=== PATIENT | male | born 1965 | race Caucasian/White ===

== ENCOUNTER 2025-02-13 18:10 | Emergency (ER) | payer BC, SELFPAY ==
[2025-02-13 18:21] VITALS: BP 117/71
[2025-02-13 18:24] VITALS: BMI 24.2
[2025-02-13 18:48] LABS: % Basophils 0.7 % (0-2); % Eosinophils 0.8 % (0-6); % Immature Granulocytes 0.4 % (0-0.5); % Monocytes 4.4 % (1.7-9.3); % Neutrophils 78.7 % (42.2-75.2); Absolute Basophils 0.1 10^3/uL (0-0.2); Absolute Eosinophils 0.1 10^3/uL (0-0.7); Absolute Lymphocytes 1.1 10^3/uL (1.2-3.4); Absolute Monocytes 0.3 10^3/uL (0.1-0.6); Absolute Neutrophils 5.7 10^3/uL (1.4-6.5); Hematocrit 40.3 % (39.0-52.0); Hemoglobin 14.4 g/dL (13.0-18.0); Mean Corp Hgb Conc. 35.7 g/dL (33.0-37.0); Mean Corpuscular Volume 86.7 fL (80.0-94.0); Mean Platelet Volume 9.2 fL (7.4-10.4); Nucleated Red Blood Cells % 0 % (-); Platelet Count 244 10^3/uL (130-400); Red Blood Cell Count 4.65 10^6/uL (4.70-6.10); Red Cell Dist. Width 11.9 % (11.5-14.5); White Blood Cell Count 7.2 10^3/uL (4.8-10.8)
[2025-02-13 19:00] VITALS: BP 119/74
[2025-02-13 19:09] LABS: ALT (SGPT) 15 U/L (0-50); AST (SGOT) 19 U/L (17-59); Albumin 5.1 g/dl (3.5-5.0); Alkaline Phosphatase 81 U/L (38-126); Blood Urea Nitrogen 17 mg/dl (9-20); Calcium 9.6 mg/dl (8.4-10.2); Carbon Dioxide 14 mmol/L (22-30); Chloride 108 mmol/L (98-107); Estimated Creatinine Clearance 85 ml/min; Glucose 157 mg/dl (70-99); Sodium 138 mmol/L (135-145); Total Bilirubin 1.4 mg/dl (0.2-1.3); Total Protein 7.3 g/dl (6.3-8.2); eGFR > 60.00
[2025-02-13 19:11] LABS: Troponin I < 0.012 ng/ml
[2025-02-13 19:31] LABS: Venous Blood Gas B.E. -1.1 mmol/L (-4 to +4); Venous Blood Gas HCO3 22.6 mmol/L (22-27); Venous Blood Gas O2 Sat % 95.9 %; Venous Blood Gas pCO2 34 mmHg (35-48); Venous Blood Gas pH 7.43 (7.32-7.43); Venous Blood Gas pO2 69 mmHg (30-50)
[2025-02-13 19:32] LABS: Venous Blood Gas O2 Therapy RA
[2025-02-13 20:00] VITALS: BP 113/75
--- NOTE | 2025-02-13 21:15 | ED.GENMED ---
History of Present Illness
General
Chief Complaint: Dizziness
Time Seen by Provider: 02/13/25 21:03
History of Present Illness
History of Present Illness:
Patient is a 59-year-old man who is otherwise healthy presenting to the emergency department after syncopal event. Patient states that he has a torn retina and was at the retinal specialist getting a procedure completed. After the procedure which
she has had before he became nauseous lightheaded dizzy and then passed out. When he came to patient was still nauseous and he started to panic. He started hyperventilating and then had numbness to his fingers. He did become slightly dizzy.
Medics were called and he did have an episode of emesis on his way here. He states that since has been here all symptoms have resolved. He states that he was dizzy earlier which was only positional. He did not get lightheaded or dizzy with
movement. No chest pain. No shortness of breath. This is never happened to him before. Since he has been here patient states he has been tolerating p.o. and ambulated without any difficulty.
Phy Exam
Physical Exam
Physical Exam:
GENERAL: in no acute distress
HEENT: normocephalic, extraocular movements intact, moist oral mucosa
NECK: normal inspection
RESPIRATORY: no respiratory distress, clear to auscultation bilaterally
CARDIOVASCULAR: regular rate and rhythm
ABDOMEN/: soft, non-distended, non-tender to palpation, no rebound or guarding
EXTREMITIES: non-tender, no edema/swelling
NEUROLOGIC: alert and oriented x 3, cranial nerves II-XII intact, right upper extremity strength 5/5, left upper extremity strength 5/5, right lower extremity strength 5/5, left lower extremity strength 5/5, normal sensation to light touch, normal
[id number] and [id number]-[id number], gait not tested formally
SKIN: warm
Course
Orders/Labs/Results
Orders:
Orders
02/13/25 18:16
Electrocardiogram (*1) Urgent
Reason for Study: Chest Pain
Cardiac Monitoring- Treatment ONCE
EKG- Treatment ONCE
IV Insert/Care/Rem.- Treatment PRN
O2 Therapy [RESP] Urgent
Titrate/Wean O2 to maintain O2 sat greater than (%): 90
Special Instructions: Maintain sats >/=90%
Pulse Ox/spot Check [RESP] Urgent
Quantity: 1
Special Instructions: ON ROOM AIR
02/13/25 18:36
Complete Blood Count/With Diff Urgent
Comprehensive Metabolic Panel Urgent
Troponin I Urgent
02/13/25 19:23
Venous Blood Gas Urgent
%Oxygen/Room Air: RA
02/13/25 21:17
Basic Metabolic Panel Urgent
UA Reflex to Culture [Urinalysis Reflex To Culture] Urgent
Date Specimen was Collected: 02/13/25
Time Specimen was Collected: 21:16
Urine Microscopic Reflex Cult Urgent
Abnormal Lab Results
02/13/25 02/13/25 02/13/25
18:36 19:23 21:17
RBC 4.65 L 10^6/uL
(4.70-6.10)
Absolute Lymphs (auto) 1.1 L 10^3/uL
(1.2-3.4)
Neutrophils % 78.7 H %
(42.2-75.2)
Lymphocytes % 15.0 L %
(20.5-51.1)
VBG pCO2 34 L mmHg
(35-48)
VBG pO2 69 H mmHg
(30-50)
Chloride 108 H mmol/L 108 H mmol/L
(98-107) (98-107)
Carbon Dioxide 14 L* mmol/L
(22-30)
Glucose 157 H mg/dl
(70-99)
Total Bilirubin 1.4 H mg/dl
(0.2-1.3)
Albumin 5.1 H g/dl
(3.5-5.0)
Urine Ketones 3+ A
(Negative)
Urine Bacteria (Reflex) Few A
(Negative)
Urine Albumin (Reflex) 1+ A
(Neg - Trace)
02/13/25 18:36
02/13/25 21:17
Vital Signs
Initial and Last Documented VS:
Initial Vital Signs
Temp Pulse Resp BP Pulse Ox
97.5 F 62 20 117/71 95
02/13/25 18:21 02/13/25 18:21 02/13/25 18:21 02/13/25 18:21 02/13/25 18:21
Last Documented Vital Signs
Temp Pulse Resp BP Pulse Ox
97.5 F 66 15 113/75 96
02/13/25 18:21 02/13/25 20:45 02/13/25 20:45 02/13/25 20:00 02/13/25 20:45
MDM/Problems Addressed
Differential Diagnosis Includes:
Patient is a 59-year-old man presenting to the emergency department after syncopal event. On arrival vitals unremarkable on exam is reassuring. Patient does not have any neurodeficits. Likely vagal syncope given the nausea that preceded the
syncopal event. Less likely to be cardiac arrhythmia. Unclear cause of dizziness but he does state that it was positional for like peripheral. No neurodeficits such as a central cause of vertigo. He did have blood work obtained prior to my
evaluation which does show a bicarb initially of 14. Will repeat as he does state that he was hyperventilating as soon as he got here. Patient does appear really well and does not appear or critically ill.
*Critical Care Note
Total Time (30-74mins, 75-104mins- exclusive of procedures): Not Applicable
Update Note
Update Note:
On reevaluation patient is tolerating p.o. He remains asymptomatic. Repeat BMP shows a normalized bicarb. Likely secondary to his hyperventilation
I did discuss with patient possible admission given the low bicarb however given that patient is asymptomatic and has felt fine since has been in the emergency department with improvement in blood work he prefers discharge which is appropriate.
Strict return precautions given.
ED Attending Note
-
Portions of this chart may have been created with voice recognition software.� Occasional wrong word or��sound alike� substitutions may have occurred due to the inherent limitations of voice recognition software.
Discharge Plan
Departure
Patient Disposition: Home (Routine Discharge)
Date of Disposition: 02/13/25
Time of Disposition: 21:53
Patient with high blood pressure during this ER visit?: No
Discharge Problem:
Syncope
Instructions: Vasovagal Response (DC)
Prescriptions:
No Action
krill oil [id number] mg Capsule
1 cap PO Q48H
Activity Restrictions/Additional Instructions:
You were seen in the Emergency Department today for passing out. While you were here we performed blood work, which was reassuring.
We would like for you to follow up with your primary care physician for further evaluation. If you experience fever, worsening of your symptoms, or develop any other new or concerning symptoms, please return to the Emergency Department immediately.
Please see the attached sheet for additional information.
Interventions
Interventions:
*Risk Screen - Suicide Last Done: 02/13/25 18:13
*General Assessment Last Done: 02/13/25 18:13
*Neglect/Abuse Screening Last Done: 02/13/25 18:13
*ED- Fall Risk Assessment Last Done: 02/13/25 18:21
*ED COVID-19 Vaccine History Last Done: 02/13/25 18:21
ED- Neurological Assessment Last Done: 02/13/25 18:34
ED Swallowing Screen Last Done: 02/13/25 21:10
Discharge Date and Time
Print Language: ANGUILLAN
[2025-02-13 21:30] LABS: Urine Albumin 1+ (Neg - Trace); Urine Bilirubin Negative (Negative); Urine Character Clear (Clear); Urine Color Yellow; Urine Glucose Negative (Negative); Urine Ketone 3+ (Negative); Urine Leukocyte Negative (Negative); Urine Nitrite Negative (Negative); Urine Occult Blood Negative (Negative); Urine Specific Gravity 1.025 (<1.030); Urine Urobilinogen Negative (Neg - 1+)
[2025-02-13 21:32] LABS: Urine Bacteria Few (Negative); Urine Mucus Many; Urine Red Blood Cell 0-2 /HPF (0-2); Urine Squamous Cell 0-2 /LPF (Few); Urine White Cell 0-2 /HPF (0-5)
[2025-02-13 21:49] LABS: Blood Urea Nitrogen 17 mg/dl (9-20); Calcium 9.3 mg/dl (8.4-10.2); Carbon Dioxide 22 mmol/L (22-30); Chloride 108 mmol/L (98-107); Estimated Creatinine Clearance 95 ml/min; Glucose 99 mg/dl (70-99); Potassium 4.1 mmol/L (3.5-5.1); Sodium 140 mmol/L (135-145); eGFR > 60.00
== END 2025-02-13 22:25 | disposition home or self-care (01) ==
LOC: EMR 18:10
PROVIDERS: EMERGENCY PHYSICIAN Student in an Organized Health Care Education/Training Program; FAMILY PHYSICIAN Family Medicine
DX: R55 Syncope and collapse (principal); R11.2 Nausea with vomiting, unspecified; R06.4 Hyperventilation; R20.0 Anesthesia of skin; Z98.890 Other specified postprocedural states
CPT/HCPCS: 99285; 94760; 80048; 80053; 81003; 81015; 82805; 84484; 85025; 93005